=== PATIENT | female | born 1995 | race Caucasian/White ===

== ENCOUNTER 2017-04-11 10:00 | Emergency (ER) | payer OTHER ==
[~2017-04-11] VITALS: Ht 160 cm; Wt 58.0 kg
[2017-04-11 10:05] VITALS: Ht 160 cm; Wt 58.0 kg
[2017-04-11 11:22] VITALS: BP 110/65
== END 2017-04-11 11:22 | disposition home or self-care (01) ==
LOC: ED 10:00
DX: L05.01 Pilonidal cyst with abscess (principal)
CPT/HCPCS: J2001

== ENCOUNTER 2017-04-13 09:07 | Emergency (ER) | payer OTHER ==
[~2017-04-13] VITALS: Ht 154.9 cm; Wt 57.1 kg
[2017-04-13 09:13] VITALS: Ht 154.9 cm; Wt 57.1 kg
[2017-04-13 10:00] VITALS: BP 110/62
== END 2017-04-13 10:00 | disposition home or self-care (01) ==
LOC: ED 09:07
DX: O26.891 Other specified pregnancy related conditions, first trimester (principal); Z48.01 Encounter for change or removal of surgical wound dressing; Z3A.09 9 weeks gestation of pregnancy

== ENCOUNTER 2018-10-31 18:54 | Emergency (ER) | payer OTHER ==
[~2018-10-31] VITALS: Ht 154.9 cm; Wt 66.7 kg
[2018-10-31 19:29] VITALS: Ht 154.9 cm; Wt 66.7 kg
[2018-10-31 21:10] VITALS: BP 103/60
== END 2018-10-31 21:10 | disposition home or self-care (01) ==
LOC: ED 18:54
DX: O26.892 Other specified pregnancy related conditions, second trimester (principal); L05.01 Pilonidal cyst with abscess; Z3A.20 20 weeks gestation of pregnancy

== ENCOUNTER 2018-11-03 20:58 | Emergency (ER) | payer OTHER ==
[~2018-11-03] VITALS: Ht 154.9 cm; Wt 66.2 kg
[2018-11-03 21:09] VITALS: Ht 154.9 cm; Wt 66.2 kg
[2018-11-03 23:40] VITALS: BP 114/62
== END 2018-11-03 23:40 | disposition home or self-care (01) ==
LOC: ED 20:58
DX: L05.01 Pilonidal cyst with abscess (principal)

== ENCOUNTER 2018-11-04 15:03 | Emergency (ER) | payer OTHER ==
[~2018-11-04] VITALS: Ht 157.5 cm; Wt 66.7 kg
[2018-11-04 15:11] VITALS: Ht 157.5 cm; Wt 66.7 kg
[2018-11-04 16:06] VITALS: BP 110/66
== END 2018-11-04 16:06 | disposition home or self-care (01) ==
LOC: ED 15:03
DX: L05.01 Pilonidal cyst with abscess (principal); Z48.01 Encounter for change or removal of surgical wound dressing

== ENCOUNTER 2020-04-27 23:37 | Emergency (ER) | payer OTHER ==
[~2020-04-27] VITALS: Ht 154.9 cm; Wt 66.7 kg
[2020-04-27 23:43] VITALS: Ht 154.9 cm; Wt 66.7 kg
[2020-04-28 00:21] LABS: PLATELET COUNT 177 x10^3mcL (179-408)
[2020-04-28 00:24] LABS: BASOPHIL % 2.3 % (0.2-1.3)
[2020-04-28 00:34] LABS: CALCIUM 8.3 mg/dL (8.5-10.1); CARBON DIOXIDE 26.1 mmol/L (21-32); CHLORIDE SERUM 106 mmol/L (98-107); CREATININE SERUM 0.6 mg/dL (0.6-1.0); GFR1 > 60 mL/min; GLUCOSE SERUM 102 mg/dL (74-106); POTASSIUM SERUM 3.8 mmol/L (3.5-5.1); SODIUM SERUM 140 mmol/L (136-145)
[2020-04-28 02:07] VITALS: BP 106/59
== END 2020-04-28 02:07 | disposition home or self-care (01) ==
LOC: ED 23:37
PROVIDERS: Emergency Medicine
DX: R07.89 Other chest pain (principal)
CPT/HCPCS: 85378; J1885